=== PATIENT | female | born 1970 | race Caucasian/White ===

== ENCOUNTER 2017-06-04 11:18 | Emergency (ER) | payer BC ==
[~2017-06-04] VITALS: Ht 154.9 cm; Wt 68.0 kg
[2017-06-04 11:54] VITALS: BP 127/75
--- NOTE | 2017-06-04 12:09 | NUR ---
PATIENT TO BED 11 AT THIS TIME.
--- NOTE | 2017-06-04 12:20 | NUR ---
47F BIB FAMILY WITH C/O 6/10 CONSTANT "DULL" RUQ PAIN SINCE LAST NIGHT WITH NAUSEA; PT DENIES ANY DIARRHEA, VOMITTING, OR FEVERS. PT IS AOX4 WITH STEADY GAIT. RR ARE EVEN AND UNLABORED. PT POSITIONED TO COMFORT, BED DOWN. NAD. VSS. AWAITING ER MD PRIMARY EVAL. WILL CONTINUE TO MONITOR.
--- NOTE | 2017-06-04 12:20 | NUR ---
RASH TO RIGHT MID ABD; PT STS RASH APPEARED LAST NIGHT.
--- NOTE | 2017-06-04 12:58 | NUR ---
er md leigh by bedside examing patient
[2017-06-04 13:21] VITALS: BP 121/64
--- NOTE | 2017-06-04 13:21 | NUR ---
Patient discharged with v/s stable. Written and verbal after care instructions given and explained. Patient alert, oriented and verbalized understanding of instructions. Ambulatory with steady gait. All questions addressed prior to discharge. ID band removed. Patient advised to follow up with PMD. Rx of ZOFRAN,FAMVIR,TRAMADOL given. Patient educated on indication of medication including possible reaction and side effects. Opportunity to ask questions provided and answered.
== END 2017-06-04 13:21 | disposition home or self-care (01) ==
LOC: MED 11:18
DX: B02.9 Zoster without complications (principal)
CPT/HCPCS: 81025; 99283